=== PATIENT | male | born 1995 | race Hispanic/Latino ===

== ENCOUNTER 2021-09-24 03:11 | Emergency (ER) | payer SELFPAY ==
--- NOTE | 2021-09-24 04:23 | Emergency Department Report ---
ED Psych HPI - General Chief Complaint: Psych Stated Complaint: SUICIDAL Time Seen by Provider: 09/24/21 03:42 Source: EMS Mode of arrival: Stretcher - History of Present Illness Initial Comments: Patient is a 26-year-old male who presents with suicidal ideation. Patient states that he has no plan to harm himself however he feels suicidal patient is currently homeless he states he has been on Seroquel before in the past. Patient denies having any pain nausea or vomiting. - Related Data Allergies Allergy/AdvReac Type Severity Reaction Status Date / Time No Known Allergies Allergy Verified 09/24/21 03:18 ED Review of Systems ROS: Stated complaint: SUICIDAL Other details as noted in HPI Constitutional: denies: chills, fever Eyes: denies: eye pain, eye discharge, vision change ENT: denies: ear pain, throat pain Respiratory: denies: cough, shortness of breath, wheezing Cardiovascular: denies: chest pain, palpitations Endocrine: no symptoms reported Gastrointestinal: denies: abdominal pain, nausea, diarrhea Genitourinary: denies: urgency, dysuria Musculoskeletal: denies: back pain, joint swelling, arthralgia Skin: denies: rash, lesions Neurological: denies: headache, weakness, paresthesias Psychiatric: suicidal thoughts. denies: anxiety, depression Hematological/Lymphatic: denies: easy bleeding, easy bruising ED Physical Exam - General Limitations: No Limitations General appearance: alert, in no apparent distress - Head Head exam: Present: atraumatic, normocephalic - Eye Eye exam: Present: normal appearance - ENT ENT exam: Present: mucous membranes moist - Neck Neck exam: Present: normal inspection - Respiratory Respiratory exam: Present: normal lung sounds bilaterally. Absent: respiratory distress - Cardiovascular Cardiovascular Exam: Present: regular rate, normal rhythm. Absent: systolic murmur, diastolic murmur, rubs, gallop - GI/Abdominal GI/Abdominal exam: Present: soft, normal bowel sounds - Rectal Rectal exam: Present: deferred - Extremities Exam Extremities exam: Present: normal inspection - Back Exam Back exam: Present: normal inspection - Neurological Exam Neurological exam: Present: alert, oriented X3 - Psychiatric Psychiatric exam: Present: normal affect, normal mood - Skin Skin exam: Present: warm, dry, intact, normal color. Absent: rash ED Course Vital Signs 09/24/21 03:17 Temperature 98.3 F Pulse Rate 82 Respiratory 18 Rate Blood Pressure 108/44 [Left] O2 Sat by Pulse 95 Oximetry ED Medical Decision Making - Medical Decision Making Chief medical diagnosis: Suicidal ideation Differential medical diagnosis: Malingering, bipolar disorder I will get CBC BMP I will sign a 1013 and I will get psych consult Patient has been Medically cleared. Critical care attestation.: If time is entered above; I have spent that time in minutes in the direct care of this critically ill patient, excluding procedure time. ED Disposition Clinical Impression: Suicidal ideation Disposition: [address] [place] [address] Is pt being admited?: No Does the pt Need Aspirin: No Condition: Stable
[2021-09-24 05:08] LABS: Hemoglobin 15.3 gm/dl (11.8-15.2); Mean Corpuscular Volume 96 fl (84-94); Red Blood Count 4.79 M/mm3 (3.65-5.03)
[2021-09-24 05:09] LABS: Lymphocytes % (Auto) 26.3 % (13.4-35.0); Mean Corpuscular HGB Conc 33 % (32-34); Platelet Count 237 K/mm3 (140-440); Red Cell Distribution Width 14.3 % (13.2-15.2)
[2021-09-24 05:10] LABS: Basophils % (Auto) 0.7 % (0.0-1.8); Eosinophils # (Auto) 0.2 K/mm3 (0.0-0.4); Lymphocytes # (Auto) 1.3 K/mm3 (1.2-5.4); Monocytes # (Auto) 0.5 K/mm3 (0.0-0.8); Monocytes % (Auto) 10.4 % (0.0-7.3)
[2021-09-24 05:14] LABS: BUN/Creatinine Ratio 15; Blood Urea Nitrogen 12 mg/dL (9-20)
[2021-09-24 05:15] LABS: Calcium 9.3 mg/dL (8.4-10.2); Hemolysis Index 10
[2021-09-24 08:07] LABS: Bilirubin,Urine NEG (Negative); Blood,Urine NEG (Negative); Color,Urine Yellow (Yellow); Protein,Urine <15 mg/dL mg/dL (Negative); RBC,Urine < 1.0 /HPF (0.0-6.0); Urobilinogen,Urine < 2.0 mg/dL (<2.0); WBC,Urine < 1.0 /HPF (0.0-6.0)
[2021-09-24 08:12] LABS: Amphetamine Screen,Urine Negative; Benzodiazepines Screen,Urine Negative; Cocaine Screen,Urine Negative; Methadone Screen,Urine Negative; Opiate Screen,Urine Negative
[2021-09-24 08:27] LABS: Cannabinoid Screen,Urine Positive
[2021-09-24 10:26] VITALS: BP 123/78
--- NOTE | 2021-09-24 11:45 | Consultation ---
History of Present Illness - Reason for Consult Consult date: 09/24/21 Reason for consult: mental health evaluation - History of Present Psychiatric Illness ED Note: Patient is a 26-year-old male who presents with suicidal ideation. Patient states that he has no plan to harm himself however he feels suicidal patient is currently homeless he states he has been on Seroquel before in the past. Patient denies having any pain nausea or vomiting. Amos Nevarez is a 26 year old male with history of Schizoaffective disorder. 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 In my interview with the patient, he is alert and oriented x3. The patient reports that he is homeless. The patient states he was feeling suicidal yesterday but has no suicidal ideation today. He denies any current hallucinations. PAST PSYCHIATRIC HISTORY Diagnoses: Schizoaffective Suicide attempts or Self-harm behavior: Denies Prior psychiatric hospitalizations:Yes Substance Abuse history:Denies Previous psychiatric medications tried: Denies Outpatient treatment:unknown PAST MEDICAL HISTORY: None reported Family Psychiatric History: None reported or documented SOCIAL HISTORY Marital Status: Single Living Arrangements:Homeless Access to guns/weapons: Denies Education:11th grade History of Abuse: Denies Legal History: None reported REVIEW OF SYSTEMS Constitutional: Negative for weight loss ENT: Negative for stridor Respiratory: Negative for cough or hemoptysis All other systems reviewed and are negative MENTAL STATUS EXAMINATION General Appearance and Behavior: Age appropriate, good hygiene, not wearing appropriate clothes, good eye contact, cooperative polite with questioning. Cooperation: Participating/engaged Psychomotor Behavior: Psychomotor normal Mood: "ok" Affect and affective range:congruent with stated mood Thought Process: Goal directed Thought Content:reality oriented Speech: normal tone and pace Suicidal Ideation:Denies Homicidal Ideation: Denies HI Hallucinations: Denies Delusions: None elicited Impulse Control: Limited Insight and Judgment: Limited insight and fair judgment Memory: Normal Attention: Normal Orientation: Alert, oriented, Assessment and Plan Schizoaffective disorder DC 1013 Restart home meds Medical: Per primary Sitter: Defer to primary Disposition: Do not recommend acute inpatient treatment. Will sign off. Medications and Allergies Medications and Allergies Allergies Allergy/AdvReac Type Severity Reaction Status Date / Time No Known Allergies Allergy Verified 09/24/21 03:18 Mental Status Exam - Vital signs Last Vital Signs Temp 97.7 F 09/24/21 10:25 Pulse 89 09/24/21 10:25 Resp 18 09/24/21 10:25 BP 123/78 09/24/21 10:25 Pulse Ox 97 09/24/21 10:25 Results Result Diagrams: 09/24/21 03:09 09/24/21 03:09 Abnormal lab results 09/24/21 09/24/21 09/24/21 Range/Units 03:09 03:09 03:09 Hgb 15.3 H (11.8-15.2) gm/dl Hct 46.0 H (35.5-45.6) % MCV 96 H (84-94) fl Moody % (Auto) 10.4 H (0.0-7.3) % Salicylates < 0.3 L (2.8-20.0) mg/dL Acetaminophen 5.0 L (10.0-30.0) ug/mL All other labs normal.
== END 2021-09-24 11:59 | disposition home or self-care (01) ==
LOC: ED 03:11
DX: R45.851 Suicidal ideations (principal); Z20.822 Contact with and (suspected) exposure to COVID-19
CPT/HCPCS: 36415; 80048; 80307; 81001; 85025; 99284; U0003; 80320; G0480

== ENCOUNTER 2021-09-25 01:08 | Emergency (ER) | payer SELFPAY ==
[2021-09-25 02:28] LABS: Basophils % (Auto) 0.5 % (0.0-1.8); Eosinophils # (Auto) 0.3 K/mm3 (0.0-0.4); Eosinophils % (Auto) 4.8 % (0.0-4.3); Hematocrit 45.2 % (35.5-45.6); Hemoglobin 15.2 gm/dl (11.8-15.2); Lymphocytes # (Auto) 1.6 K/mm3 (1.2-5.4); Lymphocytes % (Auto) 26.7 % (13.4-35.0); Mean Corpuscular HGB Conc 34 % (32-34); Mean Corpuscular Volume 96 fl (84-94); Monocytes # (Auto) 0.6 K/mm3 (0.0-0.8); Monocytes % (Auto) 9.5 % (0.0-7.3); Platelet Count 248 K/mm3 (140-440); Red Blood Count 4.72 M/mm3 (3.65-5.03); Red Cell Distribution Width 14.4 % (13.2-15.2)
[2021-09-25 02:33] LABS: BUN/Creatinine Ratio 14; Blood Urea Nitrogen 11 mg/dL (9-20); Calcium 9.1 mg/dL (8.4-10.2); Hemolysis Index 10
--- NOTE | 2021-09-25 04:53 | Emergency Department Report ---
<SHREE PADRON - Last Filed: 09/25/21 04:47> ED Psych HPI - General Chief Complaint: Psych Stated Complaint: SUICIDAL IDEATIONS Time Seen by Provider: 09/25/21 01:37 Source: EMS Mode of arrival: Stretcher - History of Present Illness Initial Comments: Patient is a 26-year-old male with a history of schizoaffective disorder who is presenting with suicidal ideations. Patient was here yesterday for same complaint and was cleared. Patient stated yesterday that he was suicidal initially and then stated that he was not. Was believe that the patient may have been here secondary to his homelessness and wanting some secondary gain. Patient states he is suicidal again. She does not endorse a plan. States he is hearing voices. States he is not taking any medications at this time. - Related Data Allergies Allergy/AdvReac Type Severity Reaction Status Date / Time No Known Allergies Allergy Verified 09/24/21 03:18 ED Review of Systems Comment: All other systems reviewed and negative ED Physical Exam - General Limitations: No Limitations General appearance: alert, in no apparent distress - Head Head exam: Present: atraumatic, normocephalic - Eye Eye exam: Present: normal appearance - ENT ENT exam: Present: mucous membranes moist - Neck Neck exam: Present: normal inspection - Respiratory Respiratory exam: Present: normal lung sounds bilaterally. Absent: respiratory distress, wheezes, rales, rhonchi - Cardiovascular Cardiovascular Exam: Present: regular rate, normal rhythm, normal heart sounds. Absent: systolic murmur, diastolic murmur, rubs, gallop - GI/Abdominal GI/Abdominal exam: Present: soft, normal bowel sounds. Absent: distended, tenderness, guarding, rebound - Rectal Rectal exam: Present: deferred - Extremities Exam Extremities exam: Present: normal inspection - Back Exam Back exam: Present: normal inspection - Neurological Exam Neurological exam: Present: alert, oriented X3 - Psychiatric Psychiatric exam: Present: normal affect, normal mood - Skin Skin exam: Present: warm, dry, intact, normal color. Absent: rash ED Course - Reevaluation(s) Reevaluation #1: 09/25/21 04:54 Patient medically cleared and can be seen by mental health assessment team. ED Medical Decision Making - Lab Data Result diagrams: 09/25/21 01:59 09/25/21 01:59 Lab Results 09/25/21 09/25/21 09/25/21 Range/Units 01:59 01:59 01:59 WBC 6.1 (4.5-11.0) K/mm3 RBC 4.72 (3.65-5.03) M/mm3 Hgb 15.2 (11.8-15.2) gm/dl Hct 45.2 (35.5-45.6) % MCV 96 H (84-94) fl MCH 32 (28-32) pg MCHC 34 (32-34) % RDW 14.4 (13.2-15.2) % Plt Count 248 (140-440) K/mm3 Lymph % (Auto) 26.7 (13.4-35.0) % Petroleum % (Auto) 9.5 H (0.0-7.3) % Eos % (Auto) 4.8 H (0.0-4.3) % Baso % (Auto) 0.5 (0.0-1.8) % Lymph # (Auto) 1.6 (1.2-5.4) K/mm3 Petroleum # (Auto) 0.6 (0.0-0.8) K/mm3 Eos # (Auto) 0.3 (0.0-0.4) K/mm3 Baso # (Auto) 0.0 (0.0-0.1) K/mm3 Seg Neutrophils % 58.5 (40.0-70.0) % Seg Neutrophils # 3.6 (1.8-7.7) K/mm3 Sodium 138 (137-145) mmol/L Potassium 3.8 (3.6-5.0) mmol/L Chloride 101.4 (98-107) mmol/L Carbon Dioxide 25 (22-30) mmol/L Anion Gap 15 mmol/L BUN 11 (9-20) mg/dL Creatinine 0.8 (0.8-1.3) mg/dL Estimated GFR > 60 ml/min BUN/Creatinine Ratio 14 % Glucose 105 H (75-100) mg/dL Calcium 9.1 (8.4-10.2) mg/dL Salicylates < 0.3 L (2.8-20.0) mg/dL Acetaminophen (10.0-30.0) ug/mL 09/25/21 Range/Units 01:59 WBC (4.5-11.0) K/mm3 RBC (3.65-5.03) M/mm3 Hgb (11.8-15.2) gm/dl Hct (35.5-45.6) % MCV (84-94) fl MCH (28-32) pg MCHC (32-34) % RDW (13.2-15.2) % Plt Count (140-440) K/mm3 Lymph % (Auto) (13.4-35.0) % Petroleum % (Auto) (0.0-7.3) % Eos % (Auto) (0.0-4.3) % Baso % (Auto) (0.0-1.8) % Lymph # (Auto) (1.2-5.4) K/mm3 Petroleum # (Auto) (0.0-0.8) K/mm3 Eos # (Auto) (0.0-0.4) K/mm3 Baso # (Auto) (0.0-0.1) K/mm3 Seg Neutrophils % (40.0-70.0) % Seg Neutrophils # (1.8-7.7) K/mm3 Sodium (137-145) mmol/L Potassium (3.6-5.0) mmol/L Chloride (98-107) mmol/L Carbon Dioxide (22-30) mmol/L Anion Gap mmol/L BUN (9-20) mg/dL Creatinine (0.8-1.3) mg/dL Estimated GFR ml/min BUN/Creatinine Ratio % Glucose (75-100) mg/dL Calcium (8.4-10.2) mg/dL Salicylates (2.8-20.0) mg/dL Acetaminophen 5.0 L (10.0-30.0) ug/mL ED Disposition Clinical Impression: Acute depression Disposition: HOME / SELF CARE / HOMELESS Condition: Stable Additional Instructions: Professional and Agency Contacts To help Res[facility] Crises (18/04) [place] Crisis Line: Suicide Prevention Line: Crisis Text Line: Text START to 099130 Emergency: 911 Outpatient COMMUNITY Behavioral Health Resources: DEKALB: [facility] [address] [place], [place] [address] [facility] [address] [place] [address] Tuesday thru Tuesday - 8am - 5pm Call to schedule an assessment for mental health and substance abuse programs BEL: [facility] Address: [address] [place] [address] Tuesday thru Tuesday- 7am-2pm [facility] Address: [address] [place] [address] Tuesday thrtuesday: 8:30AM-5PM Prescriptions: Escitalopram [Lexapro] 5 mg PO QDAY #30 oral.liqd Referrals: PRIMARY CARE, [Primary Care Provider] - 3-5 Days <CHERISE PADRON - Last Filed: 09/25/21 14:07> ED Review of Systems ROS: Stated complaint: SUICIDAL IDEATIONS Other details as noted in HPI ED Course Vital Signs 09/25/21 09/25/21 09/25/21 01:18 03:12 03:13 Temperature 98.2 F 98.7 F Pulse Rate 96 H 84 Respiratory 18 16 Rate Blood Pressure 122/96 112/64 [Left] O2 Sat by Pulse 96 95 95 Oximetry 09/25/21 12:06 Temperature 98.7 F Pulse Rate 83 Respiratory 18 Rate Blood Pressure 112/63 [Left] O2 Sat by Pulse 98 Oximetry ED Medical Decision Making - Lab Data Result diagrams: 09/25/21 01:59 09/25/21 01:59 - Medical Decision Making Patient cleared by psychiatry team. dc'd home Critical care attestation.: If time is entered above; I have spent that time in minutes in the direct care of this critically ill patient, excluding procedure time. ED Disposition Is pt being admited?: No Does the pt Need Aspirin: No
--- NOTE | 2021-09-25 09:58 | Progress Note ---
Subjective - Reason for Consult Consult date: 09/25/21 Reason for consult: SI - Chief Complaint Chief complaint: The patient was seen today. He is a/o x 3. He is evasive. He never removes the linen from his face. His symptoms are very vague. When asked did he fill his scripts and take his meds he initially states "the meds didn't work." He later says "he wasn't sure about meds." The patient states his suicidal thoughts "left, then came back, then left and came back again." When asking how long has he been suicidal, he then says "for awhile." He denies having a plan. The patient denies hallucinations of any kind. REVIEW OF SYSTEMS Constitutional: Negative for weight loss ENT: Negative for stridor Respiratory: Negative for cough or hemoptysis All other systems reviewed and are negative MENTAL STATUS EXAMINATION General Appearance and Behavior: Age appropriate, good hygiene, not wearing appropriate clothes, reluctant to cooperative Cooperation: Participating/engaged Psychomotor Behavior: Psychomotor normal Mood: okay Affect and affective range:congruent with stated mood Thought Process: Circumstantial Thought Content: None Speech: normal tone and pace Suicidal Ideation: "on and off," "for a while" Homicidal Ideation: Denies Hallucinations: Denies Delusions: None elicited Impulse Control: Limited Insight and Judgment: Limited insight and poor judgment Memory: Normal Attention: Normal Orientation: Alert, oriented, Assessment and Plan Hx of Schizophrenia Treatment Plan Medical: Per primary Sitter: Defer to primary Disposition: Do not Recommend acute inpatient treatment. The film coater to give the patient all necessary resources The patient to follow up with outpatient in 7 to 14 days upon discharge Will sign off. Thanks Case staffed with Dr. Perez Mental Status Exam - Vital signs Last Vital Signs Temp 98.7 F 09/25/21 03:12 Pulse 84 09/25/21 03:12 Resp 16 09/25/21 03:12 BP 112/64 09/25/21 03:12 Pulse Ox 95 09/25/21 03:13
[2021-09-25 12:07] VITALS: BP 112/63
== END 2021-09-25 16:19 | disposition home or self-care (01) ==
LOC: ED 01:08
DX: F32.A Depression, unspecified (principal)
CPT/HCPCS: 36415; 80048; 80320; 85025; 99284; G0480

== ENCOUNTER 2021-10-13 23:03 | Emergency (ER) | payer SELFPAY ==
--- NOTE | 2021-10-13 23:41 | Emergency Department Report ---
ED Psych HPI - General Chief Complaint: Psych Stated Complaint: SI Time Seen by Provider: 10/13/21 23:18 Source: patient, EMS Mode of arrival: Stretcher - History of Present Illness Initial Comments: Patient is 26 years old male with history of schizoaffective disorder. Patient brought to the emergency room via EMS from home for mental health evaluation. Patient stated that he is feeling suicidal. Patient also admitted hearing voices and having visual hallucination. Patient denied any drug abuse except for weed. He denied any homicidal ideation. MD Complaint: suicidal ideation, feels depressed Associated Psychiatric Symptoms: depression, suicidal ideation, racing thoughts, auditory hallucinations, visual hallucinations Context: recent drug abuse Associated Symptoms: denies other symptoms Treatments Prior to Arrival: none If Self Harm: admits thoughts of - Related Data Previous Rx's Medication Instructions Recorded Last Taken Type Escitalopram [Lexapro] 5 mg PO QDAY #30 oral.liqd 09/25/21 Unknown Rx Allergies Allergy/AdvReac Type Severity Reaction Status Date / Time No Known Allergies Allergy Verified 09/24/21 03:18 ED Review of Systems ROS: Stated complaint: SI Other details as noted in HPI Comment: All other systems reviewed and negative Constitutional: denies: chills, fever Respiratory: denies: cough, shortness of breath, SOB with exertion, SOB at rest Cardiovascular: denies: chest pain, palpitations Gastrointestinal: denies: abdominal pain, nausea, vomiting Musculoskeletal: denies: back pain Neurological: denies: headache, weakness, numbness, paresthesias, confusion Psychiatric: depression, auditory hallucinations, visual hallucinations, suicidal thoughts. denies: homicidal thoughts ED Past Medical Hx - Past Medical History Previous Medical History?: No - Surgical History Past Surgical History?: No - Medications Home Medications: Home Medications Medication Instructions Recorded Confirmed Last Taken Type Escitalopram [Lexapro] 5 mg PO QDAY #30 oral.liqd 09/25/21 Unknown Rx ED Physical Exam - General Limitations: No Limitations General appearance: alert, in no apparent distress - Head Head exam: Present: atraumatic, normocephalic, normal inspection - Eye Eye exam: Present: normal appearance, PERRL - ENT ENT exam: Present: normal exam, normal orophraynx, mucous membranes moist - Neck Neck exam: Present: normal inspection, full ROM. Absent: tenderness, meningismus - Respiratory Respiratory exam: Present: normal lung sounds bilaterally - Cardiovascular Cardiovascular Exam: Present: regular rate, normal rhythm, normal heart sounds - GI/Abdominal GI/Abdominal exam: Present: soft, normal bowel sounds. Absent: distended, ten derness, guarding, rebound, rigid, organomegaly, mass, bruit, pulsatile mass, hernia - Extremities Exam Extremities exam: Present: normal inspection - Back Exam Back exam: Present: normal inspection, full ROM. Absent: CVA tenderness (R), CVA tenderness (L) - Neurological Exam Neurological exam: Present: alert, oriented X3, CN II-XII intact, normal gait, reflexes normal. Absent: motor sensory deficit - Psychiatric Psychiatric exam: Present: depressed, suicidal ideation. Absent: homicidal ideation - Skin Skin exam: Present: warm, intact, normal color ED Course Vital Signs 10/13/21 10/14/21 10/14/21 23:04 00:12 00:16 Temperature 97.9 F Pulse Rate 89 Respiratory 14 Rate Blood Pressure 120/90 [Right] O2 Sat by Pulse 97 97 Oximetry 10/14/21 10/14/21 08:31 12:46 Temperature 98.2 F Pulse Rate 86 Respiratory 18 Rate Blood Pressure 127/73 [Right] O2 Sat by Pulse 97 97 Oximetry ED Medical Decision Making - Lab Data Result diagrams: 10/13/21 23:40 10/13/21 23:40 - Medical Decision Making Patient is 26 years old male with history of schizoaffective disorder. Patient brought to the emergency room via EMS from home for mental health evaluation. Patient stated that he is feeling suicidal. Patient also admitted hearing voices and having visual hallucination. Patient denied any drug abuse except for weed. He denied any homicidal ideation. Patient is medically clear to be evaluated by our psychiatric team. Critical care attestation.: If time is entered above; I have spent that time in minutes in the direct care of this critically ill patient, excluding procedure time. ED Disposition Clinical Impression: History of suicidal ideation, Encounter for medical screening examination, Encounter for behavioral health screening Disposition: HOME / SELF CARE / HOMELESS Is pt being admited?: No Condition: Good Additional Instructions: Please follow-up with outpatient resources that have been provided to the patient. Please follow-up with an outpatient primary care doctor within the next month. Please follow-up with an outpatient psychiatrist within the next week. Urine screen suggested the presence of marijuana or marijuana metabolites. If the patient is consuming marijuana or being exposed to marijuana, or consuming any kind of drug, such as tobacco, alcohol, or any other kind of recreational d rug, recommend that the patient refrain from the aforementioned consumption. Please return to the emergency room right away with new pain, worsened pain, migration of pain, projectile vomiting, change in mental status, confusion, inability tolerate liquid feeds, new, worsened or different symptoms not present on the initial emergency room evaluation HOMELESS RESOURCES: [facility] NEED HELP? If you are in need of help or know someone who does, please contact us at [email or web address] or call , or come to our offices at [address] [place] [address], [place] [address], Tuesday-Tuesday beginning at 8AM. [facility] Males only Admission at 7am Tue to Tue Address: [address] [place] [address] Client Engagement [facility] [phone] Regular program admission occurs Tuesday through Tuesday at 7:00 am and operates on a first come, first serve basis. Because we cant anticipate program availability in advance and program spots are in high demand, we recommend arriving early. Space fills up fast! Next steps can include: Assignment to a [facility] program bed Connection to and placement in a partner program, or Referral to a partner agency [facility] [place] Admission at 4:30pm daily Address: [facility] [place] [address] [facility] Admission from 8am to 10am Daily No intake until 09/22/20 Address: [facility] [place] [address] Professional and Agency Contacts To help Resolve Crises(18/04) [place] Crisis Line: Suicide Prevention Line: Crisis Text Line: Text START to 525980 Emergency: 911 Outpatient COMMUNITY Behavioral Health Resources: DEJESUSLB: [facility] [address] [place], [place] [address] [address] JANNETH: [facility] - [address] [place] [address] Tuesday thru Tuesday - 8am - 5pm MECHELLE: [facility] Address: [address], [place] [address] [facility]: [facility] Address: [address] [place] [address] Tuesday thru Tuesday- 7am-2pm [facility] Address: [address], [place] [address] Tuesday thru Tuesday: 8:30AM-5PM OUTPATIENT MENTAL HEALTH RESOURCES [facility], [facility] Julio Cristino MD: [address], [address] [facility] [address] [place] [address] [place] [address] [facility]: [facility] [address] [place] [address] [place] [address] [phone] [facility] ([place], [place]) [facility]: [facility]: [address] [place] [address] [address] [place] [address] [place] [address] [facility] [address] [facility]: Bobo Montoya MD: [address] [facility] [address] [facility] [id number] [facility]: [address] [place] [address] [phone] [place] CRISIS AND ACCESS LINE: In case of an emergency, please contact the following numbers: [place] Crisis and Access Line: Number: Crisis Text Line: (Text START) Number: 174348 Suicide Prevention Line: Number: Emergency Number: 911 SUBSTANCE ABUSE PROGRAMS: [facility]: Location: [place], [place] [facility] Address: [address] [place] [address] [facility]: Address: [address] [place] [address] [facility]: Address: [address] [place] [address] [facility] Community: Address: [address] [place] [address] [facility] Address: [address] [place] [address]. Please contact above numbers to attempt placement into free based program. Medicaid Programs: [facility]: Address: [address] [place] [address] [facility]: Address: [address] [place] [id number] Referrals: [facility] [Outside] - 3-5 Days [facility] [Outside] - 3-5 Days
[2021-10-14 00:53] LABS: Bilirubin,Urine NEG (Negative); Blood,Urine NEG (Negative); Color,Urine Yellow (Yellow); Protein,Urine <15 mg/dL mg/dL (Negative); RBC,Urine < 1.0 /HPF (0.0-6.0); Urobilinogen,Urine < 2.0 mg/dL (<2.0)
[2021-10-14 00:56] LABS: Basophils % (Auto) 0.4 % (0.0-1.8); Eosinophils # (Auto) 0.1 K/mm3 (0.0-0.4); Eosinophils % (Auto) 1.2 % (0.0-4.3); Hematocrit 48.7 % (35.5-45.6); Hemoglobin 16.4 gm/dl (11.8-15.2); Lymphocytes # (Auto) 1.8 K/mm3 (1.2-5.4); Lymphocytes % (Auto) 15.1 % (13.4-35.0); Mean Corpuscular HGB Conc 34 % (32-34); Mean Corpuscular Volume 95 fl (84-94); Monocytes # (Auto) 1.1 K/mm3 (0.0-0.8); Monocytes % (Auto) 9.1 % (0.0-7.3); Platelet Count 302 K/mm3 (140-440); Red Blood Count 5.13 M/mm3 (3.65-5.03); Red Cell Distribution Width 13.2 % (13.2-15.2)
[2021-10-14 01:03] LABS: Amphetamine Screen,Urine PRESUMPTIVE NEGATIVE; Benzodiazepines Screen,Urine PRESUMPTIVE NEGATIVE; Cannabinoid Screen,Urine PRESUMPTIVE POSITIVE; Cocaine Screen,Urine PRESUMPTIVE NEGATIVE; Methadone Screen,Urine PRESUMPTIVE NEGATIVE; Opiate Screen,Urine PRESUMPTIVE NEGATIVE
[2021-10-14 01:10] LABS: BUN/Creatinine Ratio 20; Blood Urea Nitrogen 18 mg/dL (9-20); Calcium 9.7 mg/dL (8.4-10.2); Hemolysis Index 16
--- NOTE | 2021-10-14 09:12 | Consultation ---
History of Present Illness - Reason for Consult Consult date: 10/14/21 Reason for consult: SI - History of Present Psychiatric Illness The patient was seen today. He is a 26y/o male patient who states that he presented to the ER for SI. He says his "life is just not going right." He says "I feel good now. I actually slept." The patient says "I think that rest helped me." He says when he came in he was also hearing voices. The patient says "I don't even hear them anymore." He says he "smoked pot" but denies any other illicit drug use. The patient says he is homeless. He says he is unemployed. He says he has a history of schizoaffective disorder. He says "I just need to utilize my resources." The patient says he has a plan "get out of here and get my life together." He is asking when can he discharge. REVIEW OF SYSTEMS Constitutional: Negative for weight loss ENT: Negative for stridor Respiratory: Negative for cough or hemoptysis All other systems reviewed and are negative MENTAL STATUS EXAMINATION General Appearance and Behavior: Age appropriate, good hygiene, wearing appropriate clothes. calm, cooperative Cooperation: Cooperative Psychomotor Behavior: Psychomotor normal Mood: a lot better Affect and affective range: Congruent with stated mood Thought Process: Goal directed Thought Content: Reality oriented Speech: Normal tone and pace Suicidal Ideation: Denies Homicidal Ideation: Denies Hallucinations: Denies Delusions: none elicited Impulse Control: Limited Insight and Judgment: Limited insight and fair judgment Memory: Limited Attention: Attentive Orientation: a/o x 3 Assessment (1) Schizoaffective Disorder Current Visit: Yes Status: Acute Treatment Plan d/c 1013 No scripts given at this time Medical: Per medical team Sitter: defer to medical Disposition: Do no recommend acute psychiatric inpatient treatment. The patient understands that if SI/HI or any fear of endangerment are to arise he is to seek immediate assistance He is to abstain from all illicit drug use. The communications strategist to give the patient all necessary resources including, shelters, ou homes etc and CBT resources The patient is to follow up in 7 to 14 days with outpatient psych up discharge from hospital Will sign off. Thanks Case staffed with Dr. Perez Medications and Allergies Allergies Allergy/AdvReac Type Severity Reaction Status Date / Time No Known Allergies Allergy Verified 09/24/21 03:18 Home Medications Medication Instructions Recorded Confirmed Last Taken Type Escitalopram [Lexapro] 5 mg PO QDAY #30 oral.liqd 09/25/21 Unknown Rx Mental Status Exam - Vital signs Last Vital Signs Temp 97.9 F 10/14/21 00:12 Pulse 89 10/13/21 23:04 Resp 14 10/13/21 23:04 BP 120/90 10/13/21 23:04 Pulse Ox 97 10/14/21 08:31 Results Result Diagrams: 10/13/21 23:40 10/13/21 23:40 Abnormal lab results 10/13/21 10/13/21 10/13/21 Range/Units 23:40 23:40 23:40 WBC 11.7 H (4.5-11.0) K/mm3 RBC 5.13 H (3.65-5.03) M/mm3 Hgb 16.4 H (11.8-15.2) gm/dl Hct 48.7 H (35.5-45.6) % MCV 95 H (84-94) fl [place] % (Auto) 9.1 H (0.0-7.3) % [place] # (Auto) 1.1 H (0.0-0.8) K/mm3 Seg Neutrophils % 74.2 H (40.0-70.0) % Seg Neutrophils # 8.7 H (1.8-7.7) K/mm3 Potassium 5.1 H (3.6-5.0) mmol/L Salicylates < 0.3 L (2.8-20.0) mg/dL Acetaminophen (10.0-30.0) ug/mL 10/13/21 Range/Units 23:40 WBC (4.5-11.0) K/mm3 RBC (3.65-5.03) M/mm3 Hgb (11.8-15.2) gm/dl Hct (35.5-45.6) % MCV (84-94) fl [place] % (Auto) (0.0-7.3) % [place] # (Auto) (0.0-0.8) K/mm3 Seg Neutrophils % (40.0-70.0) % Seg Neutrophils # (1.8-7.7) K/mm3 Potassium (3.6-5.0) mmol/L Salicylates (2.8-20.0) mg/dL Acetaminophen 5.0 L (10.0-30.0) ug/mL All other labs normal.
--- NOTE | 2021-10-14 11:44 | Event Note ---
Date: 10/14/21 The patient was evaluated in the emergency department for symptoms described in the history of present illness. He/she was evaluated in the context of the global COVID-19 pandemic, which necessitated consideration that the patient might be at risk for infection with the virus that causes COVID-19. Institutional protocols and algorithms that pertain to the evaluation of patients at risk for COVID-19 are in a state of rapid change based on information released by regulatory bodies including the CDC and federal and state organizations. These policies and algorithms were followed during the patient's care in the emergency department. Please note that these policies, procedures and recommendations changed on a rapid basis. Laboratory studies, vital signs, nursing documentation, ER documentation, and psychiatric documentation are reviewed and appreciated. Nursing team reports no acute events this morning or concerns. The patient is awake and does not appear to be in any acute distress. The patient was deemed medically suitable for psychiatric disposition and placement during his initial ER evaluation. The patient continues to remain medically suitable for psychiatric placement and disposition. Psychiatric team have recommended discharge. He will therefore be discharged. Nursing team endorses no acute concerns or complaints this morning
[2021-10-14 12:47] VITALS: BP 127/73
== END 2021-10-14 12:46 | disposition home or self-care (01) ==
LOC: ED 23:03
DX: F25.9 Schizoaffective disorder, unspecified (principal); R45.851 Suicidal ideations
CPT/HCPCS: 36415; 80048; 80307; 80320; 81001; 85025; 99284; G0480

== ENCOUNTER 2021-10-15 05:07 | Emergency (ER) | payer SELFPAY ==
[2021-10-15 05:16] VITALS: BP 118/66
== END 2021-10-15 07:10 | disposition home or self-care (01) ==
LOC: ED 05:07
DX: R45.851 Suicidal ideations (principal); Z53.21 Procedure and treatment not carried out due to patient leaving prior to being seen by health care provider